=== PATIENT | female | born 1945 | race Caucasian/White ===

== ENCOUNTER → 2017-03-29 | Outpatient (CLI) | payer MEDICARE ==
[~2017-03-29] MED LIST: REGADENOSON 0.4 MG/5 ML SYRINGE ONE
== END | disposition home or self-care (01) ==
LOC: CFH 08:47
PROVIDERS: ATTEND Internal Medicine
DX: R07.9 Chest pain, unspecified (principal); R06.02 Shortness of breath; I10 Essential (primary) hypertension
CPT/HCPCS: 78452; 93017; A9502; J2785

== ENCOUNTER → 2017-05-04 | Outpatient (CLI) | payer MEDICARE | END | disposition home or self-care (01) | LOC: CFH 08:39 | PROVIDERS: ATTEND Internal Medicine Cardiovascular Disease | DX: R07.89 Other chest pain (principal); R91.1 Solitary pulmonary nodule | CPT/HCPCS: 75571 ==

== ENCOUNTER 2017-05-11 08:23 | Observation (INO) | payer MEDICARE ==
[2017-05-09 10:55] LABS: BASOPHILS # (AUTO) 0.04 x10^3/uL (0-0.1); BASOPHILS % (AUTO) 1 % (0-1); EOSINOPHILS # (AUTO) 0.12 x10^3/uL (0-0.4); EOSINOPHILS % (AUTO) 2 % (1-7); LYMPHOCYTES # (AUTO) 1.48 x10^3/uL (1-3.4); LYMPHOCYTES % (AUTO) 26 % (22-44); MD NO; MEAN CORPUSCULAR HEMOGLOBIN 29.6 pg (27.0-34.8); MEAN CORPUSCULAR HGB CONC 33.7 g/dL (32.4-35.8); MEAN PLATELET VOLUME 8.9 fL (7.4-10.4); MONOCYTES # (AUTO) 0.36 x10^3/uL (0.2-0.8); MONOCYTES % (AUTO) 6 % (2-9); NEUTROPHILS # (AUTO) 3.66 x10^3/uL (1.8-6.8); NEUTROPHILS % (AUTO) 65 % (42-75); PLATELET COUNT 317 x10^3/uL (130-400); RED BLOOD COUNT 4.88 x10^6/uL (3.82-5.3); RED CELL DISTRIBUTION WIDTH 14.7 % (9.6-15.2)
[2017-05-09 11:02] LABS: PROTHROMBIN TIME 10.4 Seconds (9.6-11.5)
[2017-05-09 11:05] LABS: ANION GAP 6 mmol/L (5-15); CALCIUM 9.2 mg/dL (8.5-10.1); CHLORIDE 97 mmol/L (98-107)
[2017-05-09 11:09] LABS: ALANINE AMINOTRANSFERASE 26 U/L (12-78); ALKALINE PHOSPHATASE 137 U/L (45-117); BILIRUBIN,TOTAL 0.8 mg/dL (0.2-1.0); TOTAL PROTEIN 9.4 g/dL (6.4-8.2)
[~2017-05-11] VITALS: Ht 149.9 cm; Wt 58.0 kg
[~2017-05-11 08:23] MED LIST changes: +ASPI-496 PO; +NIFE60TA13 PO; +POTA20PA25 PO; -REGADENOSON 0.4 MG/5 ML SYRINGE ONE; +TRIA1CAP3 PO
[2017-05-11] MEDS ORDERED: VERAPAMIL 2.5 MG/ML, 2ML ONE (10:13)
[2017-05-11] MEDS ORDERED: BIVALIRUDIN 250 MG ONE (10:13)
[2017-05-11] MEDS ORDERED: FENTANYL PF 100 MCG/2ML ONE ×2 (10:13→11:19)
[2017-05-11] MEDS ORDERED: TICAGRELOR 90 MG TABLET ONE ×2 (10:13→11:00)
[2017-05-11] MEDS ORDERED: LIDOCAINE 2%, 20ML ONE (10:13)
[2017-05-11] MEDS ORDERED: NITROGLYCERIN 5 MG/ML, 10ML ONE (10:13)
[2017-05-11] MEDS ORDERED: HEPARIN 1,000 UNITS/ML, 10ML ONE (10:13)
[2017-05-11] MEDS ORDERED: MIDAZOLAM 1 MG/ML, 2ML ONE (10:14)
[2017-05-11] MEDS ORDERED: BIVALIRUDIN 250 MG in DEXTROSE 5% 50 ML IV SCH (10:30)
[2017-05-11] MEDS ORDERED: PRASUGREL 10 MG TABLET ONE ×2 (10:57→10:58)
[2017-05-11] MEDS: SODIUM CHLORIDE 0.9% 1,000 ML IV SCH ×2 (11:22→19:22)
[2017-05-11] MEDS ORDERED: MORPHINE SULFATE 4 MG/ML, 1ML IVPush PRN (11:30)
[2017-05-11] MEDS ORDERED: ACETAMINOPHEN 325 MG TABLET PO PRN (11:30)
[2017-05-11 14:15] VITALS: BP 120/79
[2017-05-11 20:30] VITALS: BP 92/59
[2017-05-11] MEDS ORDERED: ZOLPIDEM 5MG TABLET PO PRN (21:00)
[2017-05-11 21:30] VITALS: BP 104/67
[2017-05-11] MEDS: TICAGRELOR 90 MG TABLET PO SCH (21:30)
[2017-05-12 02:54] VITALS: BP 130/83
[2017-05-12] MEDS: SODIUM CHLORIDE 0.9% 1,000 ML IV SCH (03:22)
[2017-05-12 05:56] LABS: ALBUMIN 3.1 g/dL (3.4-5.0); ANION GAP 9 mmol/L (5-15); CALCIUM 8.8 mg/dL (8.5-10.1); CHLORIDE 100 mmol/L (98-107)
[2017-05-12 05:59] LABS: CREATININE 0.79 mg/dL (0.55-1.02)
[2017-05-12 07:15] VITALS: BP 159/82
[2017-05-12] MEDS ORDERED: POTASSIUM CHLORIDE 20 MEQ TAB.ER.PRT PO SCH (09:00)
[2017-05-12] MEDS ORDERED: ASPIRIN 81 MG TABLET EC PO SCH (09:00)
[2017-05-12] MEDS ORDERED: TRIAMTERENE-HCTZ 37.5/25 MG TABLET PO SCH (09:00)
[2017-05-12] MEDS ORDERED: niFEDipine ER 60 MG TABLET.ER PO SCH (09:00)
[2017-05-12] MEDS: TICAGRELOR 90 MG TABLET PO SCH (09:35)
[2017-05-12] MEDS ORDERED: POTASSIUM CHLORIDE 20 MEQ TAB.ER.PRT PO ONE (10:00)
[2017-05-12] MEDS ORDERED: TICA90TA PO (10:13)
== END 2017-05-12 11:43 | disposition home or self-care (01) ==
LOC: CACL 08:23 → ORIP 11:22 → 5SO 12:19 → DCLOUNGE 05-12 11:28
PROVIDERS: ADMIT Internal Medicine Cardiovascular Disease; ATTEND Internal Medicine Cardiovascular Disease
DX: I25.110 Atherosclerotic heart disease of native coronary artery with unstable angina pectoris (principal); I10 Essential (primary) hypertension; E78.00 Pure hypercholesterolemia, unspecified; Z87.891 Personal history of nicotine dependence
CPT/HCPCS: 36415; 80048; 80053; 82040; 84484; 85014; 85018; 85025; 85610; 85730; 93005; 93458; 99156; 99157; C1725; C1769; C1874; C1887; C1894; C9600; C9601; G0378; J0583; J1644; J2250; J3010; J3490; Q9967